=== PATIENT | male | born 1940 | race Native Hawaiian/Other Pacific Islander ===

== ENCOUNTER 2016-10-01 14:08 | Inpatient (IN) | payer OTHER, MEDICARE ==
[~2016-10-01] VITALS: Ht 160 cm; Wt 60.1 kg
[2016-10-01] VITALS (15 sets, daily range): BP systolic 11–153; BP diastolic 49–76; TEMP 98.7–99.2; Ht 160 cm; Wt 60.1 kg
[~2016-10-01 14:08] MED LIST: DONE5TAB PO; FLUTICASON50 MCG/ACT NAS; LIPITOR40 MG PO; LORA0.5T17 PO; MULTIVITAMI1 PO; NAMENDA10 MG PO; POTASSIUM99 MG PO; PROTONIX20 MG PO; RISP1TAB PO; ROBITUSS10 PO; SINE OFF PO; TAVIST PO; TRICOR145 M1 PO
[2016-10-01 14:40] LABS: PLATELET COUNT 301 K/uL (142-355)
[2016-10-01 16:00] LABS: POTASSIUM 3.8 mmol/L (3.6-5.2)
[2016-10-01] MEDS ORDERED: METAMUCIL0.52 GM OR (21:27)
[2016-10-01] MEDS ORDERED: WELLBUTRIN100 M1 PO (21:28)
[2016-10-01] MEDS ORDERED: ROBITUSSI8 OR (21:32)
[2016-10-01] MEDS ORDERED: TYLENOL325 MG OR (21:33)
[2016-10-01] MEDS ORDERED: MILK OF MAGNESI1 SUS PO (21:35)
[2016-10-01] MEDS ORDERED: [UNRECOGNIZED DRUG - OTHER] OR (21:37)
[2016-10-01] MEDS ORDERED: NAMENDA5 MG OR (21:39)
[2016-10-02] VITALS (15 sets, daily range): BP systolic 92–132; BP diastolic 44–67; TEMP 98–98.7
[2016-10-02 07:10] LABS: PLATELET COUNT 220 K/uL (142-355)
[2016-10-02 07:32] LABS: POTASSIUM 3.9 mmol/L (3.6-5.2); SODIUM 140 mmol/L (136-145)
== END 2016-10-02 17:56 | disposition short-term general hospital (02) | DRG 206 ==
LOC: ICU 14:08
PROVIDERS: Internal Medicine; ADMIT Psychiatry & Neurology Psychiatry
DX: T17.890A Other foreign object in other parts of respiratory tract causing asphyxiation, initial encounter (principal); F02.81 Dementia in other diseases classified elsewhere, unspecified severity, with behavioral disturbance; G91.9 Hydrocephalus, unspecified; R06.09 Other forms of dyspnea; N39.498 Other specified urinary incontinence; F03.90 Unspecified dementia, unspecified severity, without behavioral disturbance, psychotic disturbance, mood disturbance, and anxiety; R13.12 Dysphagia, oropharyngeal phase
CPT/HCPCS: 36600; 80053; 82805; 83735; 83880; 84100; 85027; 94760